=== PATIENT | female | born 1955 | race Caucasian/White ===

== ENCOUNTER 2023-12-05 21:07 | Emergency (ER) | payer BC, MEDICARE ==
[~2023-12-05] VITALS: Ht 157.5 cm; Wt 90.9 kg
[~2023-12-05 21:07] MED LIST: HYDR-4072; LORA5TAB9; METH-822; SUMA100T21; TRIA50CA3
[2023-12-05 21:12] VITALS: BP 146/81; PULSE 96; RESP 16; TEMP 97.4
[2023-12-05] MEDS ORDERED: APIX5TAB PO (21:20)
[2023-12-05] MEDS ORDERED: METO25XL PO (21:21)
[2023-12-05] MEDS ORDERED: LISI-893 PO (21:21)
[2023-12-05] MEDS ORDERED: METF-1211 PO (21:21)
[2023-12-05 21:55] LABS: BASOPHILS % (AUTO) 0.8 % (0.0-2.0); EOSINOPHILS % (AUTO) 3.3 % (1.0-6.0); HEMATOCRIT 37.9 % (36-46); HEMOGLOBIN 12.1 g/dL (12.0-16.0); LYMPHOCYTES # (AUTO) 2.5 K/uL (1.0-4.8); LYMPHOCYTES % (AUTO) 36.8 % (22.0-44.0); MEAN CORPUSCULAR HEMOGLOBIN 28.1 pg (26.0-34.0); MEAN CORPUSCULAR VOLUME 88 fL (80-100); MONOCYTES # (AUTO) 0.8 K/uL (0.1-1.0); MONOCYTES % (AUTO) 10.9 % (2.0-9.0); NEUTROPHILS # (AUTO) 3.3 K/uL (1.8-7.7); NEUTROPHILS % (AUTO) 48.2 % (40.0-70.0); PLATELET COUNT (AUTO) 241 K/uL (150-450); RED BLOOD CELL COUNT(AUTO) 4.31 MIL/uL (4.00-5.20); RED CELL DISTRIBUTION WIDTH 14.5 % (11.5-14.5); WHITE BLOOD COUNT (AUTO) 6.9 K/uL (4.5-11.0)
[2023-12-05 22:03] LABS: ANION GAP 5 mmol/L (8-16); CALCIUM, TOTAL 9.7 mg/dL (8.8-10.5); CARBON DIOXIDE 31 mmol/L (22-29); CHLORIDE 100 mmol/L (98-107); CREATININE 0.72 mg/dL (0.60-1.30); GLOMERULAR FILTR. RATE CALC > 60 mL/min (>60); GLUCOSE,RANDOM 109 mg/dL (70-110); POTASSIUM 4.4 mmol/L (3.5-5.1); SODIUM SERUM 136 mmol/L (136-145); UREA NITROGEN, BLOOD 18 mg/dL (7-18)
[2023-12-05 22:14] LABS: TROPONIN I-HIGH SENSITIVITY Less Than 4 ng/L (<51)
== END 2023-12-05 23:09 | disposition home or self-care (01) ==
LOC: EMS 21:07
DX: R00.2 Palpitations (principal); Z86.79 Personal history of other diseases of the circulatory system
CPT/HCPCS: 80048; 84484; 85025; 93005; 99284

== ENCOUNTER 2025-05-01 01:09 | Emergency (ER) | payer MEDICARE ==
[~2025-05-01] VITALS: Ht 157.5 cm; Wt 86.4 kg
[~2025-05-01 01:09] MED LIST changes: +APIX5TAB PO; +LISI-893 PO; -LORA5TAB9; +METF-1211 PO; -METH-822; +METO25XL PO; -SUMA100T21; -TRIA50CA3
[2025-05-01 01:14] VITALS: TEMP 97.9
[2025-05-01 01:39] LABS: PLATELET COUNT (AUTO) 232 K/uL (150-450); RED BLOOD CELL COUNT(AUTO) 4.28 MIL/uL (4.00-5.20); RED CELL DISTRIBUTION WIDTH 14.1 % (11.5-14.5); WHITE BLOOD COUNT (AUTO) 5.4 K/uL (4.5-11.0)
[2025-05-01 01:48] LABS: CALCIUM, TOTAL 9.7 mg/dL (8.8-10.5); CREATININE 0.82 mg/dL (0.60-1.30); GLOMERULAR FILTR. RATE CALC > 60 mL/min (>60); GLUCOSE,RANDOM 110 mg/dL (70-110); SODIUM SERUM 140 mmol/L (136-145); UREA NITROGEN, BLOOD 17 mg/dL (7-18)
[2025-05-01 02:10] LABS: TROPONIN I-HIGH SENSITIVITY 4 ng/L (<51)
[2025-05-01] MEDS ORDERED: PANT-31 PO (02:25)
[2025-05-01] MEDS: PB/HYOSCY/ATR/SCOP/LIDO/MAALOX 55 ML BOTTLE PO ONE (02:32)
[2025-05-01] MEDS: ONDANSETRON 4 MG TABLET PO ONE (02:33)
[2025-05-01 02:40] VITALS: BP 125/71; PULSE 79; RESP 18; O2SAT 99
[2025-05-01 02:47] LABS: APPEARANCE,URINE CLEAR (CLEAR); GLUCOSE, URINE (UA) NEGATIVE (NEGATIVE); LEUKOCYTE ESTERASE ,URINE MODERATE (NEGATIVE); NITRATE,URINE NEGATIVE (NEGATIVE); OCCULT BLOOD,URINE NEGATIVE (NEGATIVE); SPECIFIC GRAVITIY, URINE 1.011 (1.003-1.030)
[2025-05-01 02:51] LABS: SQUAMOUS EPITHELIAL CELL,UR Few /LPF (None Seen)
[2025-05-02] MEDS ORDERED: OMEP-148 PO (10:10)
[2025-05-02] MEDS ORDERED: METH-659 PO (10:10)
== END 2025-05-01 03:03 | disposition home or self-care (01) ==
LOC: EMS 01:10
DX: K21.9 Gastro-esophageal reflux disease without esophagitis (principal); E11.9 Type 2 diabetes mellitus without complications; I10 Essential (primary) hypertension; I25.10 Atherosclerotic heart disease of native coronary artery without angina pectoris; M19.90 Unspecified osteoarthritis, unspecified site; Z98.890 Other specified postprocedural states; Z96.659 Presence of unspecified artificial knee joint; Z79.01 Long term (current) use of anticoagulants; Z79.899 Other long term (current) drug therapy
CPT/HCPCS: 99284; 76700; 80048; 81001; 83690; 84484; 85025; 36415; 93005; Q0162

== ENCOUNTER 2025-05-02 08:29 | Emergency (ER) | payer MEDICARE ==
[~2025-05-02] VITALS: Ht 157.5 cm; Wt 86.4 kg
[~2025-05-02 08:29] MED LIST changes: +PANT-31 PO
[2025-05-02 08:31] VITALS: TEMP 98.5
[2025-05-02 09:15] VITALS: BP 116/67; PULSE 78; RESP 18; O2SAT 100
[2025-05-02] MEDS ORDERED: METH-659 PO (10:10)
[2025-05-02] MEDS ORDERED: OMEP-148 PO (10:10)
== END 2025-05-02 16:59 | disposition home or self-care (01) ==
LOC: EMS 08:30
DX: M25.511 Pain in right shoulder (principal); M54.6 Pain in thoracic spine; K21.9 Gastro-esophageal reflux disease without esophagitis; I48.91 Unspecified atrial fibrillation; I10 Essential (primary) hypertension; I25.10 Atherosclerotic heart disease of native coronary artery without angina pectoris; M19.90 Unspecified osteoarthritis, unspecified site; G43.909 Migraine, unspecified, not intractable, without status migrainosus; Z98.890 Other specified postprocedural states; Z79.01 Long term (current) use of anticoagulants; Z79.899 Other long term (current) drug therapy; Z96.659 Presence of unspecified artificial knee joint; V89.2XXA Person injured in unspecified motor-vehicle accident, traffic, initial encounter; Y93.89 Activity, other specified; Y92.89 Other specified places as the place of occurrence of the external cause; Y92.410 Unspecified street and highway as the place of occurrence of the external cause
CPT/HCPCS: 72040; 72070; 99284; 73030-TC; Z7502